=== PATIENT | male | born 1940 | race Caucasian/White ===

== ENCOUNTER → 2016-08-12 | Outpatient (CLI) | payer OTHER, BC ==
[~2016-08-12] MED LIST: AMLH/550 PO; AMLH550 PO; AMT25 PO; CYCL-259 PO; CYCL5TAB PO; DIPH25CA65 PO; GABA1CAP4 PO; GABA300C19 PO; GLC500 PO; GLIM2TAB PO; GLIM4TAB2 PO; LISI2.5T5 PO; LSN25 PO; OXYC-57 PO; OXYC7.5T78 PO; RANITAB6 PO; TERA1CAP63 PO
[2016-08-12 13:53] LABS: URINE APPEARANCE TURBID (CLEAR); URINE BILIRUBIN NEG (NEG); URINE COLOR YELLOW; URINE EPITHELIAL CELL AUTO 0-5 /lpf (0-5); URINE NITRITE NEG (NEG); URINE SPECIFIC GRAVITY 1.026 (1.000-1.030); UROBILINOGEN NEG (NEG)
[2016-08-12 13:59] LABS: MANUAL MICROSCOPIC REQUIRED? NO; REVIEW REQ? NO
[2016-08-12 14:18] LABS: URINE PROTIEN/CREAT RATIO 0.3 (0-0.2)
--- NOTE | 2016-08-18 08:50 | CODING QUERY MEDICAL NECESSITY ---
SUPPORTING DIAGNOSIS NEEDED A supporting diagnosis is required for the test/procedure performed on this patient in order for us to be reimbursed by the patient's insurance. Please provide a supporting diagnosis for the following test/procedure listed below next to the test name along with your signature. *If there is no additional diagnosis for this patient that would support the following test/procedure please document that below next to the test/procedure. Test(s)/Procedure(s) that require a supporting diagnosis: DOS 08/12 * PSA DIAGNOSIS: Provider Signature: Date: Thank you Kamryn Miller Health Information Management Once completed, please kindly fax back to [phone] For questions please call [phone]
== END | disposition home or self-care (01) ==
LOC: C.LAB1850 11:53
PROVIDERS: ATTEND Internal Medicine Nephrology
DX: I12.9 Hypertensive chronic kidney disease with stage 1 through stage 4 chronic kidney disease, or unspecified chronic kidney disease (principal); R80.9 Proteinuria, unspecified; E55.9 Vitamin D deficiency, unspecified; N18.2 Chronic kidney disease, stage 2 (mild); N40.0 Benign prostatic hyperplasia without lower urinary tract symptoms

== ENCOUNTER → 2016-11-10 | Outpatient (CLI) | payer OTHER, BC ==
[~2016-11-10] MED LIST changes: +GABA-1218 PO; -GABA300C19 PO
--- NOTE | 2016-11-10 10:57 | DIAGNOSTIC IMAGING REPORT ---
RIGHT HAND MIN 3 VIEWS ROUTINE CLINICAL HISTORY: Right hand pain COMPARISON: None. DISCUSSION: No fractures or dislocations are visualized. There are mild osteoarthritic changes. There is no erosive disease. IMPRESSION: 1. No acute fractures 2. Mild degenerative change 3. No evidence of erosive disease Electronically signed by: James August M.D. 11/10/2016 10:55 AM Dictated Date/Time: 11/10/2016 10:54 AM
== END | disposition home or self-care (01) ==
LOC: C.RAD1850 10:33
PROVIDERS: ATTEND Physician Assistant Medical
DX: M79.643 Pain in unspecified hand (principal)

== ENCOUNTER → 2016-12-16 | Outpatient (CLI) | payer OTHER, BC ==
[2016-12-16 09:28] LABS: BASO % 0.5 %; BASO ABS # 0.05 K/uL (0-0.2); COMPLETE YES; EOS % 1.4 %; HEMATOCRIT 42.9 % (42-52); IG% 0.2 %; LYMPH % 22.5 %; LYMPH ABS # 2.11 K/uL (1.2-3.4); MEAN CELL VOLUME 88.5 fL (80-100); MEAN CORPUSCULAR HEMOGLOBIN 29.3 pg (25-34); MEAN CORPUSCULAR HGB CONC 33.1 g/dl (32-36); MEAN PLATELET VOLUME 9.6 fL (7.4-10.4); MONO % 8.3 %; NEUT % 67.1 %; PLATELET COUNT 281 K/uL (130-400); RED BLOOD COUNT 4.85 M/uL (4.7-6.1); WHITE BLOOD COUNT 9.39 K/uL (4.8-10.8)
[2016-12-16 09:52] LABS: ESTIMATED AVERAGE GLUCOSE 140 mg/dl; HA1C FLAG Normal (Normal)
[2016-12-16 10:12] LABS: ALT/SGPT 23 U/L (12-78); BLOOD UREA NITROGEN 15 mg/dl (7-18); BUN/CREATININE RATIO 20.8 (10-20); CARBON DIOXIDE 28 mmol/L (21-32); CHLORIDE 102 mmol/L (98-107); CHOLESTEROL 121 mg/dl (0-200); CREATININE 0.74 mg/dl (0.60-1.40); GLUCOSE 79 mg/dl (70-99); POTASSIUM 3.6 mmol/L (3.5-5.1); SODIUM 139 mmol/L (136-145)
[2016-12-16 10:15] LABS: ALB/GLOB RATIO 0.8 (0.9-2); ALKALINE PHOSPHATASE 57 U/L (45-117); AST/SGOT 17 U/L (15-37); CHOLESTEROL/HDL RATIO 3.2; HDL CHOLESTEROL 38 mg/dl; LDL CHOLESTEROL CALCULATED 61 mg/dl; TRIGLYCERIDES 108 mg/dl (0-150); VERY LOW DENSITY LIPOPROT CALC 22 mg/dl
[2016-12-16 10:16] LABS: URINE APPEARANCE CLEAR (CLEAR); URINE BILIRUBIN NEG (NEG); URINE COLOR YELLOW; URINE NITRITE NEG (NEG); URINE SPECIFIC GRAVITY 1.018 (1.000-1.030); UROBILINOGEN NEG (NEG)
[2016-12-16 10:20] LABS: MANUAL MICROSCOPIC REQUIRED? NO; REVIEW REQ? NO
[2016-12-16 10:29] LABS: URINE PROTIEN/CREAT RATIO 0.2 (0-0.2); URINE TOTAL PROTEIN 31.8 mg/dl (0-11.9)
[2016-12-16 10:30] LABS: CALCIUM 10.8 mg/dl (8.5-10.1)
== END | disposition home or self-care (01) ==
LOC: C.LAB1850 08:47
PROVIDERS: ATTEND Internal Medicine Pulmonary Disease
DX: E11.43 Type 2 diabetes mellitus with diabetic autonomic (poly)neuropathy (principal); E78.5 Hyperlipidemia, unspecified; I12.9 Hypertensive chronic kidney disease with stage 1 through stage 4 chronic kidney disease, or unspecified chronic kidney disease; J32.9 Chronic sinusitis, unspecified; R80.9 Proteinuria, unspecified; E55.9 Vitamin D deficiency, unspecified; N18.2 Chronic kidney disease, stage 2 (mild)

== ENCOUNTER 2017-02-03 16:55 | Emergency (ER) | payer OTHER, BC ==
[~2017-02-03] VITALS: Ht 170.2 cm; Wt 108.0 kg
[~2017-02-03 16:55] MED LIST changes: -AMLH/550 PO; -CYCL5TAB PO; -GABA-1218 PO; -GABA1CAP4 PO; +GABA300C19 PO; -GLIM4TAB2 PO; -LSN25 PO; -OXYC-57 PO
[2017-02-03 17:04] VITALS: TEMP 36.8; O2SAT 96; Ht 170.2 cm; Wt 108.0 kg
--- NOTE | 2017-02-03 17:08 | EMERGENCY ROOM VISIT NOTE ---
History Report prepared by Vita: Sandoval Booker Under the Supervision of: Dr. Luciano Ritchie D.O. First contact with patient: 16:50 Chief Complaint: TACHYCARDIA Stated Complaint: TACHYCARDIA, CHEST DISCOMFORT History of Present Illness The patient is a 77 year old who presents to the Emergency Room via EMS with complaints of tachycardia occurring today. His heart rate went up from 70 beats per minute to 120 beats per minute in about 3 minutes as noted on the iFit watch. He was at rest when he had a sudden onset of his symptoms. He also complains of a minor discomfort which is located at the top of his chest and bottom of throat. He has intermittent shortness of breath. He received 325 mg Aspirin prior to arrival. He does not have a history of similar symptoms. He has a history of diabetes, neuropathy, and back surgery. He had a stress test last year. The patient denies lower extremity pain/swelling, any other complaints. Source of History: patient Onset: today Position: other (global) Quality: other (tachycardia) Modifying Factors (Relieving): other (325 mg Aspirin) Associated Symptoms: + SOB Review of Systems See HPI for pertinent positives & negatives. A total of 10 systems reviewed and were otherwise negative. Past Medical & Surgical Medical Problems: (1) Diabetes (2) Facial cellulitis (3) Facial cellulitis (4) Flank pain (5) Prostate cancer (6) Sialadenitis (7) Sialoadenitis (8) Ventral hernia Surgical Problems: (1) Hx of cholecystectomy Family History FH: CHF (congestive heart failure) FH: cancer FH: stroke Gallbladder disease Social History Smoking Status: Never Smoker Alcohol Use: none Marital Status: Housing Status: lives with significant other Occupation Status: retired Current/Historical Medications Scheduled Amiloride/Hctz (Amiloride/Hydrochlorothia 5-50 mg), 1 TAB PO QAM Amitriptyline HCl (Amitriptyline HCl), 25 MG PO HS Gabapentin (Gabapentin), 600 MG PO BID Glimepiride (Glimepiride), 4 MG PO QAM Lisinopril (Lisinopril), 2.5 MG PO QAM Metformin HCl (Metformin HCl), 1,000 MG PO BID Terazosin Hcl (Hytrin), 10 MG PO HS Scheduled PRN Cyclobenzaprine Hcl (Flexeril), 5 MG PO TID PRN for Muscle Spasm Oxycodone/Acetaminophen 5MG/325MG (Percocet 5MG/325MG), 1 TABLET PO Q6H PRN for Pain Allergies Coded Allergies: Garcinia Cambogia (Verified Allergy, Unknown, LIPS SWELLED, 07/18/16) POLLEN (Verified Allergy, Unknown, ITCHY EYES, CONGESTION, 07/18/16) Sulfa Antibiotics (Verified Adverse Reaction, Intermediate, ABDOMINAL PAIN , 07/18/16) Metoclopramide (Verified Adverse Reaction, Unknown, abd pain, 07/18/16) Physical Exam Vital Signs Date Time Temp Pulse Resp B/P (MAP) Pulse Ox O2 Delivery O2 Flow Rate FiO2 02/03/17 19:21 84 18 105/68 94 Room Air 02/03/17 17:04 96 Room Air 02/03/17 17:04 98 Room Air 02/03/17 17:04 36.8 124 20 109/83 95 Room Air 02/03/17 17:04 96 Room Air Physical Exam GENERAL: Patient is awake, alert, and in no acute distress. Patient is resting comfortably and showing no signs of anxiety EYES: The conjunctivae are clear. The pupils are round and reactive. EARS, NOSE, MOUTH AND THROAT: The nose is without any evidence of any deformity. Mucous membranes are moist tongue is midline NECK: The neck is nontender and supple. RESPIRATORY: Normal respiratory effort is noted there is no evidence of wheezing rhonchi or rales CARDIOVASCULAR: Tachycardic rate with a regular rhythm. No definite murmur noted to auscultation. GASTROINTESTINAL: The abdomen is soft. Bowel sounds are present in all quadrants. Abdomen is nontender MUSCULOSKELETAL/EXTREMITIES: There is no evidence of gross deformity full range of motion is noted in the hips and shoulders SKIN: There is no obvious evidence of any rash. There are no petechiae, pallor or cyanosis noted. NEUROLOGIC: Patient is awake alert and oriented x3 Medical Decision & Procedures ER Provider Diagnostic Interpretation: X-ray results as stated below per interpretation by me and the radiologist. CHEST ONE VIEW PORTABLE CLINICAL HISTORY: Atypical chest pain. Tachycardia. COMPARISON STUDY: 12/28/2014 FINDINGS: The heart is mildly enlarged. Mild superior mediastinal prominence, likely represents fat deposition given the patient's body habitus. There is no failure. There is no lobar consolidation. There are no pleural effusions.[ IMPRESSION: AP portable study. No acute findings. Electronically signed by: James August M.D. 02/03/2017 5:15 PM Dictated Date/Time: 02/03/2017 5:[address] results as stated below per my review and radiologist interpretation. (CHEST FOR PE) ANGIO WITH CT DOSE: 495.65 mGy.cm HISTORY: Chest pain dyspnea TECHNIQUE: Multiaxial CT images of the chest were performed following the intravenous administration of contrast to evaluate the pulmonary arteries. Maximal intensity projection images were also obtained. COMPARISON STUDY: None. FINDINGS: There is a normal caliber thoracic aorta with no evidence for dissection. There is no evidence for pulmonary embolus. No pleural effusions. No pneumothorax. The liver and spleen are unremarkable. No mediastinal or hilar lymphadenopathy. The central airways are patent. The lungs demonstrate mild basilar interstitial change bilaterally. Mild bibasilar dependent atelectasis is also present. There are severe degenerative changes of the thoracic spine. No evidence for compression deformity. IMPRESSION: No evidence for pulmonary embolus. Mild left and to a lesser extent right basilar interstitial change. Superior mediastinal fullness felt to be secondary to fat deposition. The above report was generated using voice recognition software. It may contain grammatical, syntax or spelling errors. Electronically signed by: Samuel Jaeger M.D. 02/03/2017 7:01 PM Dictated Date/Time: 02/03/2017 6:58 PM Laboratory Results 02/03/17 16:30 Red Blood Count 4.87, Mean Corpuscular Volume 87.1, Mean Corpuscular Hemoglobin 29.6, Mean Corpuscular Hemoglobin Concent 34.0, Mean Platelet Volume 9.8, Neutrophils (%) (Auto) 62.9, Lymphocytes (%) (Auto) 26.1, Monocytes (%) (Auto) 8.4, Eosinophils (%) (Auto) 1.8, Basophils (%) (Auto) 0.5, Neutrophils # (Auto) 6.08, Lymphocytes # (Auto) 2.52, Monocytes # (Auto) 0.81, Eosinophils # (Auto) 0.17, Basophils # (Auto) 0.05 02/03/17 16:30 Test 02/03/17 16:30 White Blood Count 9.66 K/uL (4.8-10.8) Red Blood Count 4.87 M/uL (4.7-6.1) Hemoglobin 14.4 g/dL (14.0-18.0) Hematocrit 42.4 % (42-52) Mean Corpuscular Volume 87.1 fL (80-100) Mean Corpuscular Hemoglobin 29.6 pg (25-34) Mean Corpuscular Hemoglobin Concent 34.0 g/dl (32-36) Platelet Count 239 K/uL (130-400) Mean Platelet Volume 9.8 fL (7.4-10.4) Neutrophils (%) (Auto) 62.9 % Lymphocytes (%) (Auto) 26.1 % Monocytes (%) (Auto) 8.4 % Eosinophils (%) (Auto) 1.8 % Basophils (%) (Auto) 0.5 % Neutrophils # (Auto) 6.08 K/uL (1.4-6.5) Lymphocytes # (Auto) 2.52 K/uL (1.2-3.4) Monocytes # (Auto) 0.81 K/uL (0.11-0.59) Eosinophils # (Auto) 0.17 K/uL (0-0.5) Basophils # (Auto) 0.05 K/uL (0-0.2) RDW Standard Deviation 43.2 fL (36.4-46.3) RDW Coefficient of Variation 13.5 % (11.5-14.5) Immature Granulocyte % (Auto) 0.3 % Immature Granulocyte # (Auto) 0.03 K/uL (0.00-0.02) Prothrombin Time 10.6 SECONDS (9.0-12.0) Prothromb Time International Ratio 1.0 (0.9-1.1) Activated Partial Thromboplast Time 27.6 SECONDS (21.0-31.0) Partial Thromboplastin Ratio 1.1 D-Dimer 520 ug/L FEU (0-500) Anion Gap 9.0 mmol/L (3-11) Est Creatinine Clear Calc Drug Dose 85.0 ml/min Estimated GFR () 97.2 Estimated GFR (Non- 83.9 BUN/Creatinine Ratio 32.9 (10-20) Calcium Level 9.7 mg/dl (8.5-10.1) Magnesium Level 1.8 mg/dl (1.8-2.4) Total Bilirubin 0.3 mg/dl (0.2-1) Direct Bilirubin < 0.1 mg/dl (0-0.2) Aspartate Amino Transf (AST/SGOT) 17 U/L (15-37) Alanine Aminotransferase (ALT/SGPT) 24 U/L (12-78) Alkaline Phosphatase 63 U/L (45-117) Total Creatine Kinase 131 U/L (39-308) Creatine Kinase MB 4.6 ng/ml (0.5-3.6) Creatine Kinase MB Ratio 3.5 (0-3.0) Troponin I < 0.015 ng/ml (0-0.045) Pro-B-Type Natriuretic Peptide 68 pg/ml (0-1800) Total Protein 7.7 gm/dl (6.4-8.2) Albumin 3.6 gm/dl (3.4-5.0) Lipase 172 U/L (73-393) Thyroid Stimulating Hormone (TSH) 1.890 uIu/ml (0.300-4.500) Free Thyroxine 0.94 ng/dl (0.80-1.60) Laboratory results per my review. Medications Administered Medications (Trade) Dose Ordered Sig/Serjio Route Start Time Stop Time Status Last Admin Dose Admin Sodium Chloride 500 ml @ 999 mls/hr Q31M STAT IV 02/03/17 17:17 02/03/17 17:47 DC 02/03/17 17:28 999 MLS/HR Al Hydroxide/Mg Hydroxide (Maalox Susp) 30 ml STK-MED ONCE .ROUTE 02/03/17 17:37 02/03/17 17:38 DC 02/03/17 17:40 30 ML Lidocaine HCl (Viscous Lidocaine 2% Soln) 20 ml STK-MED ONCE .ROUTE 02/03/17 17:37 02/03/17 17:38 DC 02/03/17 17:40 20 ML Sodium Chloride 500 ml @ 999 mls/hr Q31M STAT IV 02/03/17 18:05 02/03/17 18:35 DC 02/03/17 18:05 999 MLS/HR ECG Indication: tachycardia Rate (beats per minute): 126 Rhythm: sinus tachycardia Findings: 1st degree AV block, no ectopy, other (Poor R wave progression) Comparison ECG Date: December 28, 2014 Change: Poor R wave progression is new when compared to December 28, 2014. Pre-hospital EKG showed sinus tachycardia, 124 beats per minute, inferior Q waves with poor R wave progression, no PVCs. Repeat EKG showed sinus rhythm, 83 beats per minute, 1st degree AV block noted, no ectopy, no acute ST segment abnormalities, poor r wave progression noted, changes are new compared to December 28, 2014. ED Course 165: The patient was evaluated in room B04B. A complete history and physical examination were performed. 1717: Sodium Chloride 500 ml @ 999 mls/hr IV 173: GI Cocktail 24 ml PO 180: Sodium Chloride 500 ml @ 999 mls/hr IV 1915: I reevaluated the patient who is feeling better. 1943: I discussed the patient's case with Dr. Santana, metal burnisher with [facility]. He agrees with outpatient follow up and returning if symptoms worsen. 1951: Upon reevaluation, the patient is resting comfortably. I discussed the results and treatment plan with him. He verbalized agreement of the treatment plan. He was discharged home. Medical Decision Prior records/ancillary studies reviewed. Triage Nursing notes reviewed. Additional history obtained from EMS. The patient's history was concerning for palpitations. Differential diagnosis: Etiologies such as premature contractions, electrolyte abnormality, cardiac dysrhythmia, thyroid dysfunction, pulmonary embolism, infection, gastrointestinal, as well as others were entertained. The patient is a 77-year-old male who presented to the emergency department for an evaluation of palpitations. The patient has a watch that tells him his heart rate any noticed that his pulse rate was elevated. He also describes a discomfort in his upper chest but states that it is not pain rather he can feel his heart racing in his upper chest. The patient's EKG did not appear to be sinus tachycardia at first however a review of his previous EKGs shows that he has a history of first degree AV block so I do feel his initial EKG was consistent with sinus tachycardia. He was treated with IV fluids in the emergency department. On subsequent reevaluation he was found to be in sinus rhythm with a first-degree AV block consistent with his previous EKG. I discussed the patient's laboratory and radiographic studies with him. He had a CT the chest which did not reveal any signs of pulmonary embolism. His initial cardiac biomarkers were negative. He was found have some degree of poor R-wave progression on EKG but I do feel this is very nonspecific and I do not feel it is correlate to today's presentation. I discussed his case with the on-call [facility] metal burnisher. I recommended outpatient follow-up for the patient. He was encouraged to rest and avoid any strenuous activity. He was also encouraged to keep himself well-hydrated. Is also encouraged to call his primary care physician in the morning to discuss any further testing such as echocardiogram or possibly a referral to the metal burnisher. The patient states that he has seen a metal burnisher in the past but was quite sometime ago but he states his cardiac workup at that time did not reveal any abnormality. He was encouraged to return to the emergency department immediately if symptoms change worsen or the need arises. Medication Reconcilliation Current Medication List: was personally reviewed by me Blood Pressure Screening Patient's blood pressure: Normal blood pressure Consults Time Called: 1918 Consulting Physician: Dr. Santana, metal burnisher with [facility] Returned Call: 1943 I discussed the patient's case with Dr. Santana, metal burnisher with [facility]. He agrees with outpatient follow up and returning if symptoms worsen. Impression Primary Impression: Palpitations Additional Impressions: Sinus tachycardia Dehydration Scribe Attestation The scribe's documentation has been prepared under my direction and personally reviewed by me in its entirety. I confirm that the note above accurately reflects all work, treatment, procedures, and medical decision making performed by me. Departure Information Dispostion Home / Self-Care Referrals Bang Dobbins M.D. (PCP) Vik Santana M.D. Forms HOME CARE DOCUMENTATION FORM, IMPORTANT VISIT INFORMATION, WORK / SCHOOL INSTRUCTIONS Patient Instructions Heart Palpitations, My [facility] Additional Instructions Call your family doctor in the morning to schedule a follow-up appointment. Drink clear liquids. Rest and avoid any strenuous activity. Discussed with your family the possible need for a cardiology evaluation or possibly an echocardiogram. Return to the emergency department immediately if symptoms change worsen or if the need arises. Problem Qualifiers
--- NOTE | 2017-02-03 17:16 | DIAGNOSTIC IMAGING REPORT ---
CHEST ONE VIEW PORTABLE CLINICAL HISTORY: Atypical chest pain. Tachycardia. COMPARISON STUDY: 12/28/2014 FINDINGS: The heart is mildly enlarged. Mild superior mediastinal prominence, likely represents fat deposition given the patient's body habitus. There is no failure. There is no lobar consolidation. There are no pleural effusions.[ IMPRESSION: AP portable study. No acute findings. Electronically signed by: James uAgust M.D. 02/03/2017 5:15 PM Dictated Date/Time: 02/03/2017 5:13 PM
[2017-02-03] MEDS ORDERED: SODIUM CHLORIDE 0.9% 500ML 500 ML IV STA ×2 (17:17→18:05)
[2017-02-03] MEDS ORDERED: GABA1CAP4 PO (17:19)
[2017-02-03] MEDS ORDERED: AMT25 PO (17:19)
[2017-02-03] MEDS ORDERED: OXYC-57 PO (17:19)
[2017-02-03] MEDS ORDERED: GLIM4TAB2 PO (17:19)
[2017-02-03] MEDS ORDERED: LSN25 PO (17:19)
[2017-02-03] MEDS ORDERED: GLC500 PO (17:19)
[2017-02-03] MEDS ORDERED: AMLH/550 PO (17:22)
[2017-02-03] MEDS ORDERED: CYCL5TAB PO (17:22)
[2017-02-03 17:30] LABS: BASO % 0.5 %; BASO ABS # 0.05 K/uL (0-0.2); COMPLETE YES; EOS % 1.8 %; HEMATOCRIT 42.4 % (42-52); IG% 0.3 %; LYMPH % 26.1 %; LYMPH ABS # 2.52 K/uL (1.2-3.4); MEAN CELL VOLUME 87.1 fL (80-100); MEAN CORPUSCULAR HEMOGLOBIN 29.6 pg (25-34); MEAN PLATELET VOLUME 9.8 fL (7.4-10.4); MONO % 8.4 %; NEUT % 62.9 %; PLATELET COUNT 239 K/uL (130-400); RED BLOOD COUNT 4.87 M/uL (4.7-6.1); WHITE BLOOD COUNT 9.66 K/uL (4.8-10.8)
[2017-02-03] MEDS ORDERED: GI COCKTAIL PO STA (17:34)
[2017-02-03] MEDS ORDERED: LIDOCAINE HCL 2% VISC SOLN 20 ML UDC ONE (17:37)
[2017-02-03] MEDS ORDERED: ALUMINUM/MAGNESIUM SUSP 30 ML UDC ONE (17:37)
[2017-02-03 17:39] LABS: PARTIAL THROMBOPLASTIN RATIO 1.1; PROTHROMBIN TIME (PATIENT) 10.6 SECONDS (9.0-12.0)
[2017-02-03 17:52] LABS: ALT/SGPT 24 U/L (12-78); AST/SGOT 17 U/L (15-37); BLOOD UREA NITROGEN 28 mg/dl (7-18); BUN/CREATININE RATIO 32.9 (10-20); CALCIUM 9.7 mg/dl (8.5-10.1); CARBON DIOXIDE 29 mmol/L (21-32); CHLORIDE 101 mmol/L (98-107); CREATININE 0.84 mg/dl (0.60-1.40); GLUCOSE 142 mg/dl (70-99); MAGNESIUM 1.8 mg/dl (1.8-2.4); POTASSIUM 3.5 mmol/L (3.5-5.1); SODIUM 139 mmol/L (136-145)
[2017-02-03 18:00] LABS: ALKALINE PHOSPHATASE 63 U/L (45-117); CKMB/CK RATIO 3.5 (0-3.0)
[2017-02-03] MEDS ORDERED: OPTIRAY 320 IV PRN (19:00)
--- NOTE | 2017-02-03 19:03 | DIAGNOSTIC IMAGING REPORT ---
(CHEST FOR PE) ANGIO WITH CT DOSE: 495.65 mGy.cm HISTORY: Chest pain dyspnea TECHNIQUE: Multiaxial CT images of the chest were performed following the intravenous administration of contrast to evaluate the pulmonary arteries. Maximal intensity projection images were also obtained. COMPARISON STUDY: None. FINDINGS: There is a normal caliber thoracic aorta with no evidence for dissection. There is no evidence for pulmonary embolus. No pleural effusions. No pneumothorax. The liver and spleen are unremarkable. No mediastinal or hilar lymphadenopathy. The central airways are patent. The lungs demonstrate mild basilar interstitial change bilaterally. Mild bibasilar dependent atelectasis is also present. There are severe degenerative changes of the thoracic spine. No evidence for compression deformity. IMPRESSION: No evidence for pulmonary embolus. Mild left and to a lesser extent right basilar interstitial change. Superior mediastinal fullness felt to be secondary to fat deposition. The above report was generated using voice recognition software. It may contain grammatical, syntax or spelling errors. Electronically signed by: Samuel Jaeger M.D. 02/03/2017 7:01 PM Dictated Date/Time: 02/03/2017 6:58 PM
[2017-02-03 19:21] VITALS: BP 105/68; PULSE 84; O2SAT 94
== END 2017-02-03 20:04 | disposition home or self-care (01) ==
LOC: EDBD 16:55 → C.EDB 16:56
DX: R00.0 Tachycardia, unspecified (principal); E86.0 Dehydration; E11.43 Type 2 diabetes mellitus with diabetic autonomic (poly)neuropathy; Z85.46 Personal history of malignant neoplasm of prostate; Z90.49 Acquired absence of other specified parts of digestive tract; Z80.9 Family history of malignant neoplasm, unspecified; Z82.49 Family history of ischemic heart disease and other diseases of the circulatory system; Z82.3 Family history of stroke; Z79.899 Other long term (current) drug therapy

== ENCOUNTER → 2017-02-23 | Outpatient (CLI) | payer OTHER, BC ==
[~2017-02-23] MED LIST changes: +AMLH/550 PO; -AMLH550 PO; -CYCL-259 PO; +CYCL5TAB PO; -DIPH25CA65 PO; +GABA1CAP4 PO; -GABA300C19 PO; -GLIM2TAB PO; +GLIM4TAB2 PO; -LISI2.5T5 PO; +LSN25 PO; +OXYC-57 PO; -OXYC7.5T78 PO; -RANITAB6 PO
--- NOTE | 2017-02-23 15:00 | DIAGNOSTIC IMAGING REPORT ---
LEFT RIBS UNILATERAL WITH PA CHEST CLINICAL HISTORY: RIB PAIN pain COMPARISON STUDY: None FINDINGS: Nondisplaced cortical fracture left sixth rib. Mild left basilar atelectasis. No evidence pneumothorax. IMPRESSION: Nondisplaced cortical fracture left sixth rib. Left basilar atelectasis. The above report was generated using voice recognition software. It may contain grammatical, syntax or spelling errors. Electronically signed by: Samuel Jaeger M.D. 02/23/2017 2:59 PM Dictated Date/Time: 02/23/2017 2:58 PM
== END | disposition home or self-care (01) ==
LOC: C.RAD1850 14:34
PROVIDERS: ATTEND Physician Assistant Medical
DX: S22.32XA Fracture of one rib, left side, initial encounter for closed fracture (principal); X58.XXXA Exposure to other specified factors, initial encounter; J98.11 Atelectasis

== ENCOUNTER → 2017-03-26 | Outpatient (CLI) | payer OTHER, BC ==
[2017-03-26 12:12] LABS: HEMATOCRIT 40.8 % (42-52); MEAN CELL VOLUME 88.3 fL (80-100); MEAN CORPUSCULAR HEMOGLOBIN 29.9 pg (25-34); MEAN CORPUSCULAR HGB CONC 33.8 g/dl (32-36); MEAN PLATELET VOLUME 10.6 fL (7.4-10.4); PLATELET COUNT 205 K/uL (130-400); RED BLOOD COUNT 4.62 M/uL (4.7-6.1); WHITE BLOOD COUNT 6.27 K/uL (4.8-10.8)
[2017-03-26 12:28] LABS: AST/SGOT 16 U/L (15-37); BLOOD UREA NITROGEN 18 mg/dl (7-18); BUN/CREATININE RATIO 24.3 (10-20); CALCIUM 9.9 mg/dl (8.5-10.1); CARBON DIOXIDE 31 mmol/L (21-32); CHLORIDE 101 mmol/L (98-107); CREATININE 0.75 mg/dl (0.60-1.40); GLUCOSE 117 mg/dl (70-99); POTASSIUM 3.9 mmol/L (3.5-5.1); SODIUM 137 mmol/L (136-145)
[2017-03-26 12:30] LABS: ALB/GLOB RATIO 0.8 (0.9-2); ALKALINE PHOSPHATASE 67 U/L (45-117); ALT/SGPT 21 U/L (12-78)
[2017-03-26 13:25] LABS: URINE APPEARANCE CLEAR (CLEAR); URINE BILIRUBIN NEG (NEG); URINE COLOR YELLOW; URINE EPITHELIAL CELL AUTO 0-5 /lpf (0-5); URINE NITRITE NEG (NEG); URINE SPECIFIC GRAVITY 1.016 (1.000-1.030); UROBILINOGEN NEG (NEG)
[2017-03-26 13:32] LABS: MANUAL MICROSCOPIC REQUIRED? NO; REVIEW REQ? NO
[2017-03-26 13:40] LABS: URINE PROTIEN/CREAT RATIO 0.2 (0-0.2); URINE TOTAL PROTEIN 14.9 mg/dl (0-11.9)
== END | disposition home or self-care (01) ==
LOC: C.LAB1850 09:57
PROVIDERS: ATTEND Internal Medicine Nephrology
DX: I12.9 Hypertensive chronic kidney disease with stage 1 through stage 4 chronic kidney disease, or unspecified chronic kidney disease (principal); R80.9 Proteinuria, unspecified; E55.9 Vitamin D deficiency, unspecified; N18.2 Chronic kidney disease, stage 2 (mild)

== ENCOUNTER → 2017-06-23 | Outpatient (CLI) | payer OTHER, BC ==
[2017-06-23 12:40] LABS: ALT/SGPT 22 U/L (12-78); AST/SGOT 16 U/L (15-37); BLOOD UREA NITROGEN 25 mg/dl (7-18); BUN/CREATININE RATIO 37.5 (10-20); CALCIUM 9.4 mg/dl (8.5-10.1); CARBON DIOXIDE 30 mmol/L (21-32); CHLORIDE 102 mmol/L (98-107); CREATININE 0.67 mg/dl (0.60-1.40); GLUCOSE 96 mg/dl (70-99); POTASSIUM 3.7 mmol/L (3.5-5.1); SODIUM 134 mmol/L (136-145)
[2017-06-23 12:45] LABS: ALB/GLOB RATIO 0.9 (0.9-2); ALKALINE PHOSPHATASE 61 U/L (45-117)
[2017-06-23 12:50] LABS: ESTIMATED AVERAGE GLUCOSE 134 mg/dl; HA1C FLAG Normal (Normal)
[2017-06-24 15:01] LABS: ALBUMIN 3.8 G/DL (3.8-4.8); GAMMA GLOBULIN 1.2 G/DL (0.8-1.7); TOTAL PROTEIN 7.1 G/DL (6.2-8.3)
== END | disposition home or self-care (01) ==
LOC: C.LAB1850 09:20
PROVIDERS: ATTEND Internal Medicine Pulmonary Disease
DX: I10 Essential (primary) hypertension (principal); G62.9 Polyneuropathy, unspecified; E11.9 Type 2 diabetes mellitus without complications; E83.52 Hypercalcemia

== ENCOUNTER → 2017-09-16 | Outpatient (CLI) | payer OTHER, BC ==
[~2017-09-16] MED LIST changes: +GABA-1219 PO; -GABA1CAP4 PO
[2017-09-16 10:08] LABS: HEMATOCRIT 42.2 % (42-52); HEMOGLOBIN 14.5 g/dL (14.0-18.0); MEAN CELL VOLUME 89.8 fL (80-100); MEAN CORPUSCULAR HEMOGLOBIN 30.9 pg (25-34); MEAN CORPUSCULAR HGB CONC 34.4 g/dl (32-36); MEAN PLATELET VOLUME 9.5 fL (7.4-10.4); PLATELET COUNT 181 K/uL (130-400); RED CELL DISTRIBUTION WIDTH CV 13.7 % (11.5-14.5); RED CELL DISTRIBUTION WIDTH SD 45.5 fL (36.4-46.3); WHITE BLOOD COUNT 12.25 K/uL (4.8-10.8)
[2017-09-16 10:46] LABS: ALBUMIN 3.4 gm/dl (3.4-5.0); BLOOD UREA NITROGEN 30 mg/dl (7-18); CALCIUM 9.6 mg/dl (8.5-10.1); CARBON DIOXIDE 28 mmol/L (21-32); CREATININE 0.76 mg/dl (0.60-1.40); GLUCOSE 110 mg/dl (70-99); PHOSPHORUS 3.5 mg/dl (2.5-4.9); POTASSIUM 3.7 mmol/L (3.5-5.1); SODIUM 137 mmol/L (136-145)
== END | disposition home or self-care (01) ==
LOC: C.LAB1850 09:00
PROVIDERS: ATTEND Internal Medicine Nephrology
DX: I12.9 Hypertensive chronic kidney disease with stage 1 through stage 4 chronic kidney disease, or unspecified chronic kidney disease (principal); R80.9 Proteinuria, unspecified; E55.9 Vitamin D deficiency, unspecified; N18.2 Chronic kidney disease, stage 2 (mild); E83.52 Hypercalcemia